=== PATIENT | female | born 1985 | race American Indian/Alaskan Native ===

== ENCOUNTER 2017-10-20 13:07 | Emergency (ER) | payer SELFPAY ==
[2017-10-20 13:39] VITALS: BP 125/72
[2017-10-20 14:33] LABS: Basophils # (Auto) 0.1 K/mm3 (0.0-0.1); Basophils % (Auto) 0.7 % (0.0-1.8); Eosinophils # (Auto) 0.1 K/mm3 (0.0-0.4); Eosinophils % (Auto) 0.8 % (0.0-4.3); Hematocrit 38.9 % (30.3-42.9); Hemoglobin 13.1 gm/dl (10.1-14.3); Lymphocytes # (Auto) 2.7 K/mm3 (1.2-5.4); Lymphocytes % (Auto) 19.1 % (13.4-35.0); Mean Corpuscular HGB Conc 34 % (30-34); Mean Corpuscular Hemoglobin 31 pg (28-32); Mean Corpuscular Volume 92 fl (79-97); Monocytes # (Auto) 1.3 K/mm3 (0.0-0.8); Monocytes % (Auto) 9.1 % (0.0-7.3); Platelet Count 247 K/mm3 (140-440); Red Blood Count 4.23 M/mm3 (3.65-5.03); Red Cell Distribution Width 13.7 % (13.2-15.2)
[2017-10-20 14:51] LABS: Alanine Aminotransferase 13 units/L (7-56); Albumin 4.1 g/dL (3.9-5); BUN/Creatinine Ratio 18; Blood Urea Nitrogen 14 mg/dL (7-17); Calcium 8.9 mg/dL (8.4-10.2); Hemolysis Index 11; Lipase 31 units/L (13-60)
[2017-10-20 14:58] LABS: Bacteria,Urine 1+ /HPF (Negative); Bilirubin,Urine NEG (Negative); Blood,Urine NEG (Negative); Color,Urine Yellow (Yellow); Mucus,Urine FEW /HPF; Protein,Urine <15 mg/dL mg/dL (Negative)
[2017-10-20] MEDS ORDERED: ZOFRAN IV ONE (19:02)
[2017-10-20] MEDS ORDERED: ROCEPHIN IM ONE ×2 (19:02→19:50)
[2017-10-20] MEDS ORDERED: XYLOCAINE 1% MPF 5 mL INFILTRATI ONE ×2 (19:02→19:50)
[2017-10-20] MEDS ORDERED: NACL 0.9% 1000 ML 1,000 ML IV ONE (19:02)
[2017-10-20] MEDS ORDERED: ZITHROMAX PO ONE ×2 (19:02→19:50)
[2017-10-20] MEDS ORDERED: FLAGYL PO ONE (19:02)
--- NOTE | 2017-10-20 19:06 | Emergency Department Report ---
Chief Complaint: Urogenital-Female Stated Complaint: ABD PAIN Time Seen by Provider: 10/20/17 19:00 - HPI History of Present Illness: The patient is a 32-year-old female who presents for evaluation of pelvic pain. The patient reports pelvic pain for the past 2 days, mild to moderate severity , crampy in quality, radiating to her back, and associated with vaginal discharge and irritation. She admits to unprotected sexual intercourse. The patient denies fever, chills, night sweats, diarrhea, blood in the stool, dark tarry stool, hematuria, flank pain, inability to pass flatus. - Exam Vital Signs: Vital Signs 10/20/17 13:33 Temperature 98.7 F Pulse Rate 88 Respiratory 20 Rate Blood Pressure 125/72 O2 Sat by Pulse 99 Oximetry MSE screening note: Focused history and physical exam performed. Due to findings the following was ordered: ED Medical Decision Making - Lab Data Result diagrams: 10/20/17 14:18 10/20/17 14:18 - Medical Decision Making Lab results revealed elevated WBC of 14. Pelvic exam and lab results are pending. Evaluation findings thus are concerning for acute PID. The patient is given IV normal saline fluid bolus and antibiotics for treatment of cervicitis and PID. The test is negative and vital signs are all within normal limits after treatment, the patient will be discharged home with antibiotics for outpatient trial of treatment of PID. ED Disposition for MSE Condition: Undetermined Referrals: PRIMARY CARE, [Primary Care Provider] - 3-5 Days
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
== END 2017-10-20 20:15 | disposition home or self-care (01) ==
LOC: ED 13:07
DX: N30.00 Acute cystitis without hematuria (principal); Z20.2 Contact with and (suspected) exposure to infections with a predominantly sexual mode of transmission; F17.200 Nicotine dependence, unspecified, uncomplicated
CPT/HCPCS: 36415; 80053; 81001; 83690; 84703; 85025; 96372; 99284; J0696